=== PATIENT | male | born 1995 | race Caucasian/White ===

== ENCOUNTER 2020-07-17 13:04 | Emergency (ER) | payer OTHER ==
[2020-07-17] MEDS ORDERED: CEPHALEXIN MONOHYDRATE 500 MG CAPSULE (UD) PO ONE ×2 (13:06→19:51)
[2020-07-17] MEDS ORDERED: DIPHTH,PERTUSS(ACELL),TET 0.5 ML DISP.SYRIN IM ONE ×2 (13:07→13:12)
[2020-07-17] MEDS ORDERED: CEPHALEXIN MONOHYDRATE 500 MG CAPSULE (UD) ONE ×2 (13:12→19:54)
[2020-07-17 13:30] VITALS: BP 110/76; PULSE 79; TEMP 98.1; BMI 17.7
--- NOTE | 2020-07-17 14:41 | PDOC ---
History of Present Illness - General Chief Complaint: Laceration Stated Complaint: I CUT MY FINGER Time Seen by Provider: 07/17/20 13:05 - History of Present Illness Initial Comments: 07/17/20 14:44 Plan: Finger injury HPI: Cut the tip of his finger while woodworking. Bleeding, burning pain. Review of systems: No other injuries. No injury to the joint and no limited range of motion of the digit. Past medical history: Healthy male, no recent medical or surgical problems. No medications No allergies Family/social history reviewed and noncontributory Physical exam: Alert and oriented, cooperative Afebrile, vital signs normal Left fourth finger: There is a fingertip avulsion with bleeding. This involves the distal pulp. It is well removed from the DIPJ, which demonstrates full range of motion against resistance in flexion and extension. Skin and soft tissue is missing, with exposure of the underlying bone. Assessment: Fingertip avulsion, rule out open fracture Plan: X-ray and further management depending on results. Past History - Medical History Allergies/Adverse Reactions: Allergies Allergy/AdvReac Type Severity Reaction Status Date / Time No Known Allergies Allergy Verified 07/17/20 13:05 Home Medications: Ambulatory Orders Bupropion HCl [Bupropion Xl] 300 mg PO DAILY 07/17/20 Fluoxetine HCl [Prozac] 37.5 mg PO DAILY 07/17/20 Trazodone HCl 300 mg PO DAILY 07/17/20 COPD: No Psychiatric Problems: Yes (OCD, ANXIETY) - Psycho-Social/Smoking History Smoking History: Never smoked - Substance Abuse Hx (Audit-C & DAST Scrn) How often the patient has a drink containing alcohol: Never Score: In Men: 4 or > Positive; In Women: 3 or > Positive: 0 Screen Result (Pos requires Nsg. Audit-10AR): Negative In the last yr the pt used illegal drug/Rx for NonMed reason: No Score: Yes response is considered Positive: 0 Screen Result (Positive result requires Nsg. DAST-10): Negative *Physical Exam - Vital Signs Last Vital Signs Temp Pulse Resp BP Pulse Ox 98.1 F 79 18 110/76 100 07/17/20 13:04 07/17/20 13:04 07/17/20 13:04 07/17/20 13:04 07/17/20 13:04 ED Treatment Course - RADIOLOGY Radiology Studies Ordered: Category Date Time Status FINGER(S) LEFT [RAD] Stat Radiology 07/17/20 13:06 Taken - Medications Given in the ED: ED Medications Discontinued Medications Generic Name Dose Route Start Last Admin Trade Name Daniel PRN Reason Stop Dose Admin Cephalexin HCl 500 mg 07/17/20 13:06 07/17/20 13:18 Keflex - PO 07/17/20 13:07 500 mg ONCE ONE Administration Diphtheria/Tetanus/Acell Pertussis 0.5 ml 07/17/20 13:07 07/17/20 13:18 Boostrix - IM 07/17/20 13:08 0.5 ml ONCE ONE Administration Medical Decision Making - Medical Decision Making 07/17/20 14:41 X-ray reviewed: There is an avulsion of the distal tuft as well as a deep soft tissue injury. Dr. Jay Soni was contacted by phone. The injury was described. A timely procedure to cover the defect recommended. He will see the patient for definitive treatment in the ER this afternoon. Patient was given tetanus booster, begun on oral antibiotics, declines analgesics at present. Appears comfortable. Discharge - Discharge Information Condition: Stable - Follow up/Referral - Patient Discharge Instructions - Post Discharge Activity
[2020-07-17] MEDS ORDERED: LIDOCAINE HCL 2% (20ML MULTI-DOSE VIAL) ONE (19:16)
--- NOTE | 2020-07-17 19:49 | PDOC ---
*Physical Exam - Vital Signs Last Vital Signs Temp Pulse Resp BP Pulse Ox 98.1 F 79 18 110/76 100 07/17/20 13:04 07/17/20 13:04 07/17/20 13:04 07/17/20 13:04 07/17/20 13:04 ED Treatment Course - Medications Given in the ED: ED Medications Discontinued Medications Generic Name Dose Route Start Last Admin Trade Name Daniel PRN Reason Stop Dose Admin Cephalexin HCl 500 mg 07/17/20 13:06 07/17/20 13:18 Keflex - PO 07/17/20 13:07 500 mg ONCE ONE Administration Diphtheria/Tetanus/Acell Pertussis 0.5 ml 07/17/20 13:07 07/17/20 13:18 Boostrix - IM 07/17/20 13:08 0.5 ml ONCE ONE Administration Medical Decision Making - Medical Decision Making Care of this patient received from Dr. Chatterjee Right fourth finger distal skin avulsion repaired by Dr. Soni. Patient received another dose of Keflex 500 mg by mouth (previous dose here was approximately 1 PM). Prescription for Keflex 500 mg 3 times daily for 5 days sent to patient's pharmacy. Patient will keep the wound elevated as much as possible over the next 2 days; during that time, the dressing should be kept as dry as possible. Follow-up should be with Dr. Soni in 1 week. He should return here or see Dr. Soni sooner if he has any increase in pain, swelling or redness in the finger or if he develops fever. Discharge - Discharge Information Problems reviewed: Yes Clinical Impression/Diagnosis: Soft tissue avulsion Condition: Stable Disposition: HOME - Additional Discharge Information Prescriptions: Cephalexin [Keflex] 500 mg PO TID #15 capsule - Follow up/Referral Referrals: Zach Soni MD [Staff Physician] - 1 week - Patient Discharge Instructions Patient Printed Discharge Instructions: How to Care for a Laceration After Repair Additional Instructions: Keep left hand elevated is much as possible over the next 48 hours Keep original dressing in place as dry as possible for 2 days After 2 days, use protective dressing during the day sent; can leave open at night Keflex 500 mg 3 times a day for 5 days Can use ibuprofen/acetaminophen/naproxen as needed for pain Return to ER or see Dr. Soni if you have increasing pain, swelling, redness in the finger Follow-up with Dr. Soni in 1 week - Post Discharge Activity
--- NOTE | 2020-07-21 14:43 | OP ---
DATE OF OPERATION: 07/17/2020 PROCEDURE: Left ring finger excision of traumatic ulcer with repair of nail bed and full-thickness skin graft application to wound. ATTENDING SURGEON: Zach Lee MD Patient seen at the request of referring physician Dr. Pilo Torres. HISTORY: This is a 25-year-old male who while woodworking at home suffered an injury from a flying piece of wood to the left ring finger, brought into the [facility] Emergency Room for evaluation and treatment. PAST MEDICAL & SURGICAL HISTORY: Noncontributory. REVIEW OF SYSTEMS: Negative for any bleeding, coagulopathy, recent fevers, infection, change in mental status, chest pain or shortness of breath. PHYSICAL EXAMINATION: Head & Neck: Atraumatic. Abdomen: Soft, nontender. Extremities: Warm, well perfused. The left ring finger has on the ulnar surface distally a segment of entirely removed skin, soft tissue and nail plate and nail bed. There is a preserved segment of skin that is available for use. Patient is counseled on the need for washout and repair of laceration wound, repair of nail bed and application of skin as a full-thickness skin graft. He understands and agrees to proceed. PROCEDURE: The finger was given a 3 mL 2% plain digital block after which tourniquet was applied which was removed at the end of the procedure. The wound was entirely prepped for application of the skin graft. Fat was able to be repositioned over any areas of exposed bone. The nail plate was partially avulsed to repair the lacerated portion of the nail bed. Once the wound was fully covered with well-vascularized soft tissue, the retained piece of skin was able to be unfolded onto the wound, secured in position with a series of interrupted 5-0 nylon suture. The wound was then dressed with bacitracin, a Daniel. The tourniquet was removed. The finger was splinted in position. He was started on Keflex, to follow up with Dr. Lee in 1 week. ZACH LEE M.D. [id number] cc: Pilo Torres MD
== END 2020-07-17 20:05 | disposition home or self-care (01) ==
LOC: FER 13:04
PROC: 3E0234Z Introduction of Serum, Toxoid and Vaccine into Muscle, Percutaneous Approach (ICD-10-PCS; principal; 2020-07-17)
DX: M79.9 Soft tissue disorder, unspecified (principal)
CPT/HCPCS: 73140-TC-LT-FY; 90715; 99284-25